=== PATIENT | female | born 1980 | race Caucasian/White ===

== ENCOUNTER 2017-03-01 15:32 | Emergency (ER) | payer MEDICAID ==
[~2017-03-01] VITALS: Ht 162.6 cm; Wt 63.8 kg
[2017-03-01] MEDS ORDERED: HYDROcodone/APAP 5/325 TABLET PO PRN (16:30)
[2017-03-01] MEDS ORDERED: ONDANSETRON ODT 4 MG PO ONE (16:30)
[2017-03-01] MEDS ORDERED: HYDROcodone/APAP 5/325 TABLET ONE (16:45)
[2017-03-01] MEDS ORDERED: ONDANSETRON ODT 4 MG ONE (16:45)
[2017-03-01 18:00] VITALS: BP 95/50
[2017-03-01 18:15] LABS: HCG UR OBC PASS
== END 2017-03-01 18:39 | disposition home or self-care (01) ==
LOC: ED 17:04
DX: S00.93XA Contusion of unspecified part of head, initial encounter (principal); S20.02XA Contusion of left breast, initial encounter; S30.1XXA Contusion of abdominal wall, initial encounter; S50.11XA Contusion of right forearm, initial encounter; S80.11XA Contusion of right lower leg, initial encounter; S70.11XA Contusion of right thigh, initial encounter; Y04.8XXA Assault by other bodily force, initial encounter; Y93.89 Activity, other specified; Y99.8 Other external cause status; Y92.009 Unspecified place in unspecified non-institutional (private) residence as the place of occurrence of the external cause
CPT/HCPCS: 70450; 70486; 72110; 72190; 73090; 81003; 81025; 99285; Q0162

== ENCOUNTER 2018-05-05 14:12 | Emergency (ER) | payer MEDICAID ==
[~2018-05-05] VITALS: Ht 162.6 cm; Wt 52.0 kg
[2018-05-05 14:52] LABS: CHLORIDE 105 mmol/L (98-107)
[2018-05-05 14:53] LABS: ALANINE AMINOTRANSFERASE 19 U/L (12-78); ALBUMIN 3.7 g/dL (3.4-5.0); ANION GAP 6 mmol/L (5-15); CALCIUM 8.9 mg/dL (8.5-10.1)
[2018-05-05 14:55] LABS: BASOPHILS # (AUTO) 0.03 x10^3/uL (0-0.1); BASOPHILS % (AUTO) 0 % (0-1); EOSINOPHILS # (AUTO) 0.16 x10^3/uL (0-0.4); EOSINOPHILS % (AUTO) 1 % (1-7); LYMPHOCYTES # (AUTO) 1.35 x10^3/uL (1-3.4); LYMPHOCYTES % (AUTO) 11 % (22-44); MD NO; MEAN CORPUSCULAR HEMOGLOBIN 33.6 pg (27.0-34.8); MEAN CORPUSCULAR VOLUME 98.9 fL (80-100); MEAN PLATELET VOLUME 8.9 fL (7.4-10.4); MONOCYTES # (AUTO) 0.44 x10^3/uL (0.2-0.8); MONOCYTES % (AUTO) 4 % (2-9); NEUTROPHILS # (AUTO) 10.26 x10^3/uL (1.8-6.8); NEUTROPHILS % (AUTO) 84 % (42-75); PLATELET COUNT 221 x10^3/uL (130-400); RED BLOOD COUNT 4.45 x10^6/uL (3.82-5.3); RED CELL DISTRIBUTION WIDTH 13.3 % (9.6-15.2)
[2018-05-05 14:57] LABS: ALKALINE PHOSPHATASE 104 U/L (45-117); BILIRUBIN,TOTAL 0.7 mg/dL (0.2-1.0); CREATININE 0.94 mg/dL (0.55-1.02); TOTAL PROTEIN 7.7 g/dL (6.4-8.2)
[2018-05-05] MEDS ORDERED: ONDANSETRON 2MG/ML, 2ML IVPush ONE (15:00)
[2018-05-05] MEDS ORDERED: MORPHINE SULFATE 4 MG/ML, 1ML IVPush PRN (15:00)
[2018-05-05 15:22] LABS: CLUE CELLS PRESENT (NONE SEEN); WET PREP WBCS MODERATE (FEW)
[2018-05-05 15:33] LABS: CULTURE INDICATED? YES; MICROSCOPIC INDICATED
[2018-05-05] MEDS ORDERED: ONDANSETRON 2MG/ML, 2ML ONE (15:41)
[2018-05-05] MEDS ORDERED: MORPHINE SULFATE 4 MG/ML, 1ML ONE (15:42)
[2018-05-05] MEDS ORDERED: metroNIDAZOLE 500 MG TABLET ONE (17:09)
[2018-05-05] MEDS ORDERED: AZITHROMYCIN 250 MG TABLET ONE (17:10)
[2018-05-05] MEDS ORDERED: CEFTRIAXONE 250 MG ONE ×2 (17:10→17:14)
[2018-05-05 17:25] VITALS: BP 104/47
[2018-05-05] MEDS ORDERED: CEFTRIAXONE 250 MG IM ONE (17:30)
[2018-05-05] MEDS ORDERED: metroNIDAZOLE 500 MG TABLET PO ONE (17:30)
[2018-05-05] MEDS ORDERED: AZITHROMYCIN 500 MG TABLET PO ONE (17:30)
== END 2018-05-05 17:50 | disposition home or self-care (01) ==
LOC: ED 17:44
DX: A59.09 Other urogenital trichomoniasis (principal); F17.200 Nicotine dependence, unspecified, uncomplicated
CPT/HCPCS: 36415; 76830; 80053; 81001; 84703; 85025; 87086; 87210; 87491; 87591; 87808; 96372; 96374; 96375; 99285; J0696; J2405

== ENCOUNTER 2018-10-16 15:20 | Emergency (ER) | payer MEDICAID ==
[~2018-10-16] VITALS: Ht 162.6 cm; Wt 54.7 kg
--- NOTE | 2018-10-16 15:28 | NUR ---
Pt ambulated to room with triage tech.
[2018-10-16] MEDS ORDERED: PHEN95TA25 PO (15:40)
--- NOTE | 2018-10-16 15:40 | NUR ---
Dr. Ling at bedside to evaluate pt. Urine sample collected and sent to lab.
[2018-10-16 15:57] LABS: MICROSCOPIC INDICATED
[2018-10-16 16:04] LABS: CULTURE INDICATED? YES
--- NOTE | 2018-10-16 16:13 | NUR ---
Patient/Caregiver given discharge instructions and they have confirmed that they understand the instructions. Patient ambulatory with steady gait.
[2018-10-16 16:14] VITALS: BP 108/64
== END 2018-10-16 16:16 | disposition home or self-care (01) ==
LOC: ED 15:57
DX: N30.01 Acute cystitis with hematuria (principal)
CPT/HCPCS: 81001; 87077; 87086; 87186; 99283

== ENCOUNTER 2021-03-14 22:33 | Emergency (ER) | payer MEDICAID ==
[~2021-03-14] VITALS: Ht 162.6 cm; Wt 59.1 kg
[2021-03-14 22:33] VITALS: BP 103/69
[~2021-03-14 22:33] MED LIST: PHEN95TA25 PO
--- NOTE | 2021-03-15 00:51 | NUR ---
NILX2
--- NOTE | 2021-03-15 00:54 | NUR ---
NILX3 [facility]BS
== END 2021-03-15 00:56 | disposition left against medical advice (07) ==
LOC: ED 23:00
DX: M79.645 Pain in left finger(s) (principal); Z53.21 Procedure and treatment not carried out due to patient leaving prior to being seen by health care provider